=== PATIENT | female | born 1960 | race Caucasian/White ===

== ENCOUNTER 2023-04-29 07:48 | Outpatient (OUT) | payer OTHER, SELFPAY ==
--- NOTE | 2023-04-29 07:52 | MM_ITS ---
Patient: LAYLA CHERY Exam Date: 04/29/2023 : 1960 Gender:F Ordering : SUSANA Kindra Vasquezolvin COLLECTIONS CURATOR Admission #: [id number] Family : Order #: [id number] CLICK HERE TO VIEW EXAM RADIOLOGY REPORT PROCEDURE: MM TOMOSYNTHESIS SCREENING BI COMPARISON: MG MAMM SCREEN 3D MYRTLE CAD, 04/17/2021. MG MAMM SCREEN 3D MYRTLE CAD, 04/23/2022. INDICATIONS: Screening Calculator Name NCI Breast Cancer Risk Assessment Tool 5 Year Breast Cancer Risk 2.40% Lifetime Breast Cancer Risk 11.90% Personal Breast Cancer No Personal Ovarian Cancer No Treatments None Family Cancers Father with non-hodgkins lymphoma cancer at age 58. LOCATION: [facility] BREAST COMPOSITION: Extremely dense, which lowers the sensitivity of mammography. FINDINGS: DIAGNOSTIC CATEGORY 2--BENIGN FINDING. NO CHANGE FROM COMPARISON. Scattered benign-appearing calcifications are present. RIGHT BREAST: No significant suspicious finding. Linear scar marker upper outer quadrant. LEFT BREAST: No significant suspicious finding. Stable micro clip marker lower inner quadrant, mid breast RECOMMENDATIONS: ROUTINE MAMMOGRAM AND CLINICAL EVALUATION IN 12 MONTHS. PLEASE NOTE: A NORMAL MAMMOGRAM DOES NOT EXCLUDE THE POSSIBILITY OF BREAST CANCER. A CLINICALLY SUSPICIOUS PALPABLE LUMP SHOULD BE BIOPSIED. Dictated by: Demetris Avila MD on 04/29/2023 at 10:04 Approved by: Demetris Avila MD on 04/29/2023 at 10:06
[2023-04-29 08:18] LABS: Basophils Absolute Auto 0.1 10^3/uL (0.0-0.1); Basophils Percent Auto 1.3 % (0.2-2.0); Eosinophils Absolute Auto 0.1 10^3/uL (0.0-0.7); Eosinophils Percent Auto 1.3 % (0.9-7.0); Hemoglobin 12.5 g/dL (12.0-16.0); Immature Granulocytes Abs Auto 0.01 10^3/uL (0.00-0.03); Immature Granulocytes Pct Auto 0.2 % (0.0-0.5); Lymphocytes Percent Auto 43.3 % (20.5-60.0); Mean Corpuscular HGB Conc 32.1 g/dL (29.9-35.2); Mean Corpuscular Hemoglobin 30.3 pg (26.7-34.0); Mean Corpuscular Volume 94.7 fL (81.0-99.0); Mean Platelet Volume 9.3 fL (9.5-13.5); Monocytes Absolute Auto 0.4 10^3/uL (0.3-0.8); Monocytes Percent Auto 8.6 % (1.7-12.0); Neutrophils Absolute Auto 2.1 10^3/uL (1.4-6.5); Neutrophils Percent Auto 45.3 % (43.0-75.0); Platelet Count 289 10^3/uL (150-450); Red Blood Count 4.12 10^6/uL (4.20-5.40); Red Cell Distribution Width 13.3 % (11.0-15.0); White Blood Count 4.5 10^3/uL (4.0-11.0)
[2023-04-29 09:41] LABS: Alanine Aminotransferase 24 U/L (14-59); Albumin Globulin Ratio 1.2; Alkaline Phosphatase 42 U/L (46-116); Anion Gap 11.1; Aspartate Amino Transferase 17 U/L (15-37); BUN Creatinine Ratio 28.6; Bilirubin Total 0.3 mg/dL (0.2-1.0); Calcium 9.5 mg/dL (8.5-10.1); Carbon Dioxide 30.6 mmol/L (21.0-32.0); Chloride 105 mmol/L (98-107); Chol HDL Ratio 2.8; Cholesterol 230 mg/dL (<=200); Estimated GFR (African America >60 (>=60); Estimated GFR (Non-African Ame >60 (>=60); Globulin 3.4 g/dL; Glucose 94 mg/dL (74-106); HDL Cholesterol 83 mg/dL (40-60); Potassium 3.7 mmol/L (3.5-5.1); Sodium 143 mmol/L (136-145); Thyroid Stimulating Hormone 5.279 uIU/mL (0.358-3.740); Total Protein 7.4 g/dL (6.4-8.2); Triglycerides 82 mg/dL (<=150); VLDL CHOLESTEROL 16.4 mg/dL
[2023-04-29 10:42] LABS: Free T4 0.94 ng/dL (0.76-1.46)
== END 2023-04-29 07:49 | disposition home or self-care (01) ==
LOC: MAMMO 07:48
PROVIDERS: PCP Nurse Practitioner; Visit Provider Nurse Practitioner
DX: E03.9 Hypothyroidism, unspecified (principal); Z12.31 Encounter for screening mammogram for malignant neoplasm of breast; Z80.7 Family history of other malignant neoplasms of lymphoid, hematopoietic and related tissues; E78.5 Hyperlipidemia, unspecified
CPT/HCPCS: 36415; 77063; 77067; 80053; 80061; 84439; 84443; 85025

== ENCOUNTER 2025-05-05 15:47 | Outpatient (OUT) | payer OTHER, SELFPAY ==
--- OUTSIDE RECORDS SUMMARY | 2025-04-26 20:38 | XMS_ITS | Continuity of Care Document ---
Author Organization [facility] Address [address] [place] [address] Phone Care Team Providers Care Health Plan Manager Name Role Phone Kindra Carey Primary Care Provider [phone] Kindra Carey Attending Provider Care Teams Visit Care Team Team Status: Inactive Member Role Status Dates Kindra Carey NP-Klaus Primary Care Provider Active Start: April 26, 2025 End: April 26, 2025Hortencia Bermeotending ProviderActiveStart: April 26, 2025 End: April 26, 2025 Patient Care Team Team Status: Inactive Member Role Status Dates GLYNN Bermeo Attending Provider Active Start: April 26, 2025 End: April 26, 2025 Chief Complaint and Reason for Visit Chief Complaint Admit Date well woman April 26, 2025 1 0:28am Reason for Visit Admit Date Encounter for screening mamm ogram for malignant neoplasm of breast April 26, 2025 10:28am Hypothyroidism April 26, 2025 1 0:28am Mixed hyperlipidemia April 26, 2025 10:28am Osteopenia of multiple sites April 10:28am Routine gynecological examination Octobe r 2024 10:28am Allergies, Adverse Reactions, Alerts Allergen Type Severity Reaction Last Updated Verified Status No Known Allergies Allergy Unknown April 20, 2025 7:58amYesActive Social History Smoking Status Unknown if ever smoked Observation Status Observation Response Date of Response Legal Sex Female (finding) Sex Assigned At BirthFemaleDecember 1959 Problems Active Problems Medical Problem Onset Date Status Colon cancer screening Unknown Active Encounter for screening mammogram for malignant neoplasm of breast Unknown Active Routine gynecological examination Unknown Active Wellness examination Unknown Active Hypothyroidism Unknown Active Mixed hyperlipidemia Unknown Active Post-menopausal Unknown Active Osteopenia of multiple sites Unknown Act cleve Medications Medication Status Dose Units Route Directions Qty Days St art Date Stop Date End Date Instructions Adherence Levothyroxine 112 mcg tablet Active 112 MCG PO Dang ly April 23, 2025 12:00amUnknown Vital Signs Vital Reading Result Reference Range Collection Date/Time Height 66 [in_i] April 26, 2025 10:24kwYovkqj88.42 [facility] 10:39amBody Vqoctanzsij84.5 [degF]97.6-99.0[facility] 2024 10:39amHeart Rate70 /yqr19-730 April 26, 2025 10:39amRespiratory rate16 /rhn20-15Geelxxd 2024 10:39am Oxygen saturation by Pulse pmhjuzvo99 %95-100[facility] 2024 10:39amBP Inqjolrd365 mm[Hg]100-140[facility] 2024 10:39amBP Uoefencwj09 mm[Hg]60-100 April 26, 2025 10:39amBMI (Body Mass Index)21.1 kg/r4Nhzgfyl 2024 10:39am Advance Directives Advance Directive Response Recorded Date/ Time Advance Directives No March 7:20am Insurance Providers Guarantor Padmini Jasso Address [address] [place] [id number] Info.Home Phone: Payer Policy Id Subscriber's Name Subscriber Id Effectiv e Date Expiration Date [facility] [id number] Padmini Jasso [id number] Encounters Encounter Location(s) Arrival/Admit Date Discharge/Depart Date Provider(s) Departed Physician/Prov ider Office Visit -[facility] [place] April 26, 2025 10:28am April 26, 2025 11:10am GLYNN Bermeo Departed Referred -[facility] April 26, 2025 11:00am April 26, 2025 11:01am GLYNN Bermeo Recent Diagnosis Onset Date Admit Date Encounter for screening mamm ogram for malignant neoplasm of breast Unknown April 26, 2025 10:28am Hypothyroidism Unknown April 26 10:28am Mixed hyperlipidemia Unknown April 10:28am Osteopenia of multiple sites Unknown Apr fredi 2024 10:28am Routine gynecological examination Unknown April 26, 2025 10:28am Assessments Diagnosis Onset Date Resolution Status Admit Date Encounter for screening mammogram for ma lignant neoplasm of breast acuteOctober 2024 10:28amHypothyroidismacuteOctober 2024 10:28am Mixed hyperlipidemiaacuteOctober 2024 10:28amOsteopenia of multiple sites acuteOctober 2024 10:28amRoutine gynecological examinationacuteOctober 2024 10:28am Plan of Treatment Author [facility]ra [facility] 11:22ammonthly BSE proper diet, including calcium rich foods weight bearing exercise as chronic conditions allow fu as per PAP result indicate DEXA scan ordered continue calcium and vit d mammogram ordered recent TSH: 5.30 on 02/22/25, increased thyroid dose to 112 recheck labs, order given current lips: 02/22/25 TC 259, trigs 111, LDL 152, HDL 84 this is improved from last labs a year ago TC 268, LDL 168 mother hx stroke (she was heavy smoker) pt non smoker, no diabetes, no HTN Future Tests Future scheduled test information is unavailable Pending Tests Test Name Ordered Date Scheduled Date IG Pap w/Ct-Ng Age Based (Off-Site) April 11:00am Reference Lab Test Patient AgeOctober 2024 11:00amIG Pap w/Ct-Ng & HPV (Off-Site)April 26, 2025 11:00amThin Prep Pap Interpretation 2October 2024 11:00amThin Prep Pap CommentOct2024 11:00amThin Prep Pap InterpretationOctober 2024 11:00amHuman Papillomavirus High RiskOctober 2024 11:00amHPV Low Volume ReflexOctober 2024 11:00amHPV [facility] 2024 11:00amHuman Papilloma Virus Type 16Oct2024 11:00amHuman Papilloma Virus Type 18/[facility] 2024 11:00amChlamydia trachomatis (DEBBI) (LAB)April 26, 2025 11:00amNeisseria gonorrhoeae (DEBBI) (LAB)April 26, 2025 11:00am Future Visits Future appointment information is unavailable Referrals to Other Providers Referral information is unavailable Future Procedures Procedure Name Ordered Date Scheduled Date IGP,Aptima HPV,CtNg Age Gdln April 26, 2025 10:04pm April 26, 2025 11:00am Free T4 (Free Thyroxine) April 26, 2025 11:1 0am [facility] 2024 11:10am Future Medications Future medication information is unavailable Patient Instructions Patient instructions are unavailable
--- OUTSIDE RECORDS SUMMARY | 2025-05-05 15:52 | XMS_ITS | Clinical Summary ---
Author Organization [facility] Address [address] [place] [address] Care Team Providers Care Music Executive Name Role Phone Mayank Arnold MD Primary Care Provider [phone] Kindra Carey NP Unavailable [phone] Allergies No known active allergies Medications MedicationSigDispense QuantityRefillsLast FilledStart DateEnd DateStatus levothyroxine (Synthroid, Levoxyl) 100 MCG tablet Indications:Hypothyroidism (acquired)Take 1 tablet (100 mcg) by mouth in the morning. Take before meals. 90 tablet /5Active levothyroxine (Synthroid, Levoxyl) 112 MCG tablet Indications:Hypothyroidism (acquired)Take 1 tablet (112 mcg) by mouth Daily 90 tablet 515Active Active Problems ProblemNoted DateDiagnosed DatePost-/11/2025Osteopenia of multiple sites02/24/2024 Overview (02/24/2024): DEXA: 10/15/2022 spine -1.0 Assessment & Plan (02/22/2025 9:17 AM EDT): DEXA 10/15/22: spine -1.0 Order DEXA, can be done in 06/08 Assessment & Plan (02/24/2024 9:31 AM EDT): Not due for dexa until 2024 Mixed rhzihsymtevczq40/12/2024 Assessment & Plan (02/22/2025 6:22 AM EDT): No current statin therapy at this time Assessment & Plan (02/24/2024 9:32 AM EDT): Check labs No statin at this time Encounter for screening mammogram for malignant neoplasm of xpubqw2602/24/2024 Assessment & Plan (02/22/2025 6:22 AM EDT): Due 06/08 Assessment & Plan (02/24/2024 9:32 AM EDT): Due in 05/07 Colon cancer oxsjkjqdf76/12/2024 Assessment & Plan (02/24/2024 9:32 AM EDT): Willing to complete cologuard Wellness brqeopqljjr59/12/2024 Assessment & Plan (02/22/2025 6:22 AM EDT): Reviewed Ht/Wt/BMI Recommend eye exam yearly Recommend dental exams twice a year Balance work/leisure activities Exercises is recommended most days of the week (appropriate as chronic conditions allow) Follow up yearly and prn Assessment & Plan (02/24/2024 9:27 AM EDT): Reviewed Ht/Wt/BMI Recommend eye exam yearly Recommend dental exams twice a year Balance work/leisure activities Exercises is recommended most days of the week (appropriate as chronic conditions allow) Follow up yearly and prn Also discussed getting life screening testing Hypothyroidism (acquired)07/14/2023 Assessment & Plan (02/22/2025 6:21 AM EDT): On levothyroxine Check labs yearly, prn dose changes or changes in sxs Assessment & Plan (02/24/2024 9:31 AM EDT): Continue current meds Check labs Encounters DateTypeDepartmentCare JrtqYhtnlyddmsr76/14/2025Refill [facility] [address] [place] [address] Kindra Carey NP Hypothyroidism (acquired) (Primary Dx)02/24/2025Results Follow-Up [facility] [address] [place] [address] Naila Hollis MA CBC and differential, Comprehensive metabolic panel, Lipid panel, Additional followed-up results: 9:00 AM EDTOffice Visit [facility] [address] [place] [address] Kindra Carey NP Wellness examination (Primary Dx); Osteopenia of multiple sites; Hypothyroidism (acquired) ; Mixed hyperlipidemia ; Encounter for screening mammogram for malignant neoplasm of breast; Post-mhoyjirons11/07/2025Travelfrom Last 3 Months Immunizations ImmunizationAdministration DatesNext DueInfluenza, injectable, MDCK, preservative free, bfneowwffave08/08/2022,05/09/2021Influenza, injectable, quadrivalent, preservative free04/21/2023Zoster, Vkxbizkspkd28/21/2024, 05/19/2023 Social History Tobacco UseTypesPacks/DayYears UsedDateSmoking Tobacco: NeverSmokeless Tobacco: Never Tobacco Cessation:Counseling Given: Not Answered Alcohol UseStandard Drinks/WeekCommentsYes8 (1 standard drink = 0.6 oz pure alcohol)caffine: soda 2 cans rnhveP7823 Health LiteracyAnswerDate RecordedHow often do you need to have someone help you when you read instructions, pamphlets, or other written material from your doctor or pharmacy?Never 02/22/2024Social Connection and Isolation PanelAnswerDate RecordedIn a typical week, how many times do you talk on the phone with family, friends, or neighbors?More than three times a week02/22/2024How often do you get together with friends or relatives?More than three times a week02/22/2024How often do you attend faith or christianity services?1 to 4 times per year02/22/2024o you belong to any clubs or organizations such as faith groups, unions, fraternal or athletic groups, or school groups?No02/22/2024How often do you attend meetings of the clubs or organizations you belong to?Never02/22/2024re you , , , , never , or living with a partner? 02/22/2024UDIT-CAnswerDate RecordedQ1: How often do you have a drink containing alcohol?2-3 times a week02/22/2024Q2: How many drinks containing alcohol do you have on a typical day when you are drinking?1 or Q3: How often do you have six or more drinks on one occasion?Less than thsamlw2902/22/2024Overall Financial Resource Strain (CARDIA)AnswerDate RecordedHow hard is it for you to pay for the very basics like food, housing, medical care, and heating?Somewhat hard02/22/2024HQ-2AnswerDate RecordedPatient Health Questionnaire-2 Score0 02/24/2024[facility] [place] [facility] Occupational Health - Occupational Stress QuestionnaireAnswerDate RecordedDo you feel stress - tense, restless, nervous, or anxious, or unable to sleep at night because yourmind is troubled all the time - these days?Not at all02/22/2024Exercise Vital SignAnswerDate RecordedOn average, how many days per week do you engage in moderate to strenuous exercise (like a brisk walk)?2 days02/22/2024On average, how many minutes do you engage in exercise at this level?30 min02/22/2024Hunger Vital SignAnswerDate Recorded Within the past 12 months, you worried that your food would run out before you got the money to buymore.Sometimes true02/22/2024Within the past 12 months, the food you bought just didn't last and you didn't have money to get more.Sometimes true02/22/2024RAPARE - TransportationAnswerDate RecordedIn the past 12 months, has lack of transportation kept you from medical appointments or from getting medications?No02/22/2024In the past 12 months, has lack of transportation kept you from meetings, work, or from getting things needed for daily living?No 02/22/2024Housing Stability Vital SignAnswerDate RecordedIn the last 12 months, was there a time when you were not able to pay the mortgage or rent on time?No 02/22/2024Number of Times Moved in the Last YearNot on file02/22/2024t any time in the past 12 months, were you homeless or living in a custodial (including now)? No02/22/2024CommentsUnknownSex and Gender InformationValueDate Recorded Sex Assigned at BirthNot on fileLegal QuqLvwqhz04/15/2023 7:13 PM EDTGender IdentityNot on fileSexual OrientationNot on file Last Filed Vital Signs Vital SignReadingTime TakenCommentsBlood Nowyhhit326/68002/22/2025 8:56 AM EDT Asxxm236202/22/2025 8:56 AM WWEKaglsqkcdap23.6 ??C (97.8 ??F)02/22/2025 8:56 AM EDTRespiratory Gesk166402/22/2025 8:56 AM EDTOxygen Blgbajgpzd68%02/22/2025 8:56 AM EDTInhaled Oxygen Concentration--Vzaboq07.4 kg (135 lb 6.4 oz)02/22/2025 8:56 AM PLIEwjmdx969.6 cm (5' 6 )02/24/2024 8:58 AM EDTBody Mass Index21.85002/24/2024 8:58 AM EDT Plan of Treatment Health MaintenanceDue DateLast DoneCommentsCT Yikniwgumkpw1962Colonoscopy 1962FIT1962FOBT1962 4324Gqbqqwlrarakk1962HPV/Pvehwb6407/09/1992 Cervical Cancer Lpholoxsh93/02/2024ap SmearInfluenza Vaccine (#1)/04/2024, 04/21/2023, 04/21/2022, Additional history llmuswBeyrpibmp22/04/202511/10/2023, 04/29/2023, 07/20/2019, Additional history existsColorectal Cancer Xsqzujfaz43/26/2027FIT-DNA4 Procedures Procedure NamePriorityDate/TimeAssociated YullkythbQbytwigfESATRfezior18/11/2025 9:36 AM EDT PGPVujkkmt34/11/2025 9:36 AM EDT Wellness examination URINALYSIS DSPRZMXmebedh97/11/2025 9:36 AM EDT Wellness examination LIPID JRLEYUxzexpu39/11/2025 9:36 AM EDT Wellness examination COMPREHENSIVE METABOLIC ATFNUVncnhnd76/11/2025 9:36 AM EDT Wellness examination CBC (INCLUDES DIFF/PLT)Dhldzgp0802/22/2025 9:36 AM EDT Wellness examination BI MAMMOGRAM SCREENING TOMOSYNTHESIS GEMDBAPJGEnqdwtd75/04/2024 8:45 AM EST Encounter for screening mammogram for malignant neoplasm of breast LAB COLOGUARD?? COLON CANCER BRHSRQKpedtut93/26/2024 7:30 AM EDT Colon cancer screening from Last 3 Months or Most Recently Relevant to Health Maintenance Results * NOTE (02/22/2025 9:36 AM EDT)ComponentValueRef RangeTest MethodAnalysis Time Performed AtPathologist SignatureNOTEQUESTComment: This urine was analyzed for the presence of WBC, RBC, bacteria, casts, and other formed elements. Only those elements seen were reported. Specimen (Source)Anatomical Location / LateralityCollection Method / Volume Collection TimeReceived Time02/22/2025 9:36 AM EDT02/22/2025 9:36 AM EDT Narrative [facility] - 02/23/2025 3:35 AM EDT FASTING:YES FASTING: YES Resulting Agency Comment Performing Organization Information ?Site ID: QPT ?Name: [facility] ?Address: [address] [place] [phone] ?Director: David Jamil MD Authorizing ProviderResult TypeResult StatusLisa Carey NPQUESTFinal Result Performing OrganizationAddressCity/State/ZIP CodePhone Number [facility] * (ABNORMAL) Urinalysis with reflex microscopic (clean catch) (02/22/2025 9:36 AM EDT)ComponentValueRef RangeTest MethodAnalysis TimePerformed AtPathologist SignatureCOLORYELLOWYELLOWQUESTAPPEARANCECLEARCLEARQUESTSPECIFIC GRAVITY1.019 1.001 - 1.702FJUYMEL0.55.0 - 8.0QUESTGLUCOSENEGATIVENEGATIVEQUESTBILIRUBIN NEGATIVENEGATIVEQUESTKETONESTRACE(A)NEGATIVEQUESTOCCULT BLOODNEGATIVENEGATIVE QUESTPROTEINNEGATIVENEGATIVEQUESTNITRITENEGATIVENEGATIVEQUESTLEUKOCYTE ESTERASE1+(A)NEGATIVEQUESTWBC0-5< OR = 5 /HPFQUESTRBCNONE SEEN< OR = 2 /HPF QUESTSQUAMOUS EPITHELIAL CELLSNONE SEEN< OR = 5 /HPFQUESTBACTERIANONE SEENNONE SEEN /HPFQUESTHYALINE CASTNONE SEENNONE SEEN /LPFQUESTSpecimen (Source) Anatomical Location / LateralityCollection Method / VolumeCollection Time Received TimeUrineUrine specimen obtained by clean catch procedure / Unknown 02/22/2025 9:36 AM EDT02/22/2025 9:36 AM EDT Narrative [facility] - 02/23/2025 3:35 AM EDT FASTING:YES FASTING: YES Resulting Agency Comment Performing Organization Information ?Site ID: QPT ?Name: [facility] ?Address: [address] [place] [phone] ?Director: David Jamil MD Authorizing ProviderResult TypeResult StatusKindra Carey NPLAB URINE ORDERABLES Final ResultPerforming OrganizationAddressCity/State/ZIP CodePhone Number [facility] * (ABNORMAL) CBC and differential (02/22/2025 9:36 AM EDT)ComponentValueRef RangeTest MethodAnalysis TimePerformed AtPathologist SignatureWHITE BLOOD CELL COUNT4.03.8 - 10.8 Thousand/uLQUESTRED BLOOD CELL COUNT4.263.80 - 5.10 Million/dBSDWLBIYIQDUGXTI74.911.7 - 15.5 g/gTRRWQTGRYPXUQWWE58.835.0 - 45.0 % UFAICYGN30.880.0 - 100.0 jSVZPKZYQU00.327.0 - 33.0 cwHCDJNTDBL40.6(L)32.0 - 36.0 g/dLQUESTComment: For adults, a slight decrease in the calculated MCHC value (in the range of 30 to 32 g/dL) is most likely not clinically significant; however, it should be interpreted with caution in correlation with other red cell parameters and the patient's clinical condition. RDW12.411.0 - 15.0 %QUESTPLATELET IMMTR304075 - 400 Thousand/uLQUESTMPV9.57.5 - 12.5 fLQUESTABSOLUTE NEUTROPHILS1,8081,500 - 7,800 cells/uLQUESTABSOLUTE LYMPHOCYTES1,111495 - 3,900 cells/uLQUESTABSOLUTE RPCEVGTAD766516 - 950 cells/uL QUESTABSOLUTE OXDSOAUZCOS6505 - 500 cells/uLQUESTABSOLUTE NRYHGXXML139 - 200 cells/wKTBRSTUCHULWMKEYY74.2%QFHNICFQNKOBHVDW70.5%QUESTMONOCYTES8.0%QUEST EOSINOPHILS1.0%QUESTBASOPHILS1.3%QUESTSpecimen (Source)Anatomical Location / LateralityCollection Method / VolumeCollection TimeReceived TimeBloodVenous blood specimen / Rzkcoye6602/22/2025 9:36 AM EDT02/22/2025 9:36 AM EDT Narrative [facility] - 02/23/2025 3:35 AM EDT FASTING:YES FASTING: YES Resulting Agency Comment Performing Organization Information ?Site ID: QPT ?Name: [facility] ?Address: [address] [place] [phone] ?Director: David Jamil MD Authorizing ProviderResult TypeResult StatusLisa Barragankasey ARPIT BLOOD ORDERABLES Final ResultPerforming OrganizationAddressCity/State/ZIP CodePhone Number [facility] * (ABNORMAL) TSH (02/22/2025 9:36 AM EDT)ComponentValueRef RangeTest Method Analysis TimePerformed AtPathologist SignatureTSH5.30(H)0.40 - 4.50 mIU/LQUEST Specimen (Source)Anatomical Location / LateralityCollection Method / Volume Collection TimeReceived TimeBloodVenous blood specimen / Rgpcnoo8102/22/2025 9:36 AM EDT02/22/2025 9:36 AM EDT Narrative [facility] - 02/23/2025 3:35 AM EDT FASTING:YES FASTING: YES Resulting Agency Comment Performing Organization Information ?Site ID: QPT ?Name: [facility] ?Address: [address] [place] [address], [address] [place] [phone] ?Director: David Jamil MD Authorizing ProviderResult TypeResult StatusLisa Aiclancaster rehabilitation hospitalolvin NPLAB BLOOD ORDERABLES Final ResultPerforming OrganizationAddressCity/State/ZIP CodePhone Number [facility] * (ABNORMAL) Lipid panel (02/22/2025 9:36 AM EDT)ComponentValueRef RangeTest MethodAnalysis TimePerformed AtPathologist SignatureCHOLESTEROL, SFRYW364(H) <200 mg/dLQUESTHDL SGAQMONMLTO29> OR = 50 mg/pBTXQMVMNDATDQVEQVCP445<150 mg/dL QUESTLDL FAKTIJTVACD655(H)mg/dL (calc)QUESTComment: Reference range: <100 Desirable range <100 mg/dL for primary prevention; <70 mg/dL for patients with CHD or diabetic patients with > or = 2 CHD risk factors. LDL-C is now calculated using the Jori-Gabriella calculation, which is a validated novel method providing better accuracy than the Friedewald equation in the estimation of LDL-C. Jori SS et al. TRAE. 2013;310(19): 4636-4859 (http://education.[employer].com/faq/DIP150) CHOL/HDLC RATIO3.1<5.0 (calc)QUESTNON HDL QAQVHZXGILA609(H)<130 mg/dL (calc) QUESTComment: For patients with diabetes plus 1 major ASCVD risk factor, treating to a non-HDL-C goal of <100 mg/dL (LDL-C of <70 mg/dL) is considered a therapeutic option. Specimen (Source)Anatomical Location / LateralityCollection Method / Volume Collection TimeReceived TimeBloodVenous blood specimen / Zngzlpz2302/22/2025 9:36 AM EDT02/22/2025 9:36 AM EDT Narrative [facility] - 02/23/2025 3:35 AM EDT FASTING:YES FASTING: YES Resulting Agency Comment Performing Organization Information ?Site ID: QPT ?Name: [facility] ?Address: [address] [place], [place] [address] , [address] [place] [phone] ?Director: David Jamil MD Authorizing ProviderResult TypeResult StatusLisa Barragankasey NPLAB BLOOD ORDERABLES Final ResultPerforming OrganizationAddressCity/State/ZIP CodePhone Number [facility] * (ABNORMAL) Comprehensive metabolic panel (02/22/2025 9:36 AM EDT)Component ValueRef RangeTest MethodAnalysis TimePerformed AtPathologist SignatureGlucose 109(H)65 - 99 mg/dLQUESTComment: ? Fasting reference interval For someone without known diabetes, a glucose value between 100 and 125 mg/dL is consistent with prediabetes and should be confirmed with a follow-up test. QDK441 - 25 mg/dLQUESTCreatinine0.660.50 - 1.05 mg/rDOQCCOWZQB55> OR = 60 mL/min/1.71l2ZNVHFHHC/CREATININE RATIOSEE NOTE:6 - (calc)QUESTComment: ?? Not Reported: BUN and Creatinine are within ?? reference range. ? Vnypcz395109 - 146 mmol/LQUESTPotassium, Bld4.03.5 - 5.3 mmol/UTOULRFmhjerhu743 98 - 110 mmol/LQUESTCarbon Vlziwfk2103 - 32 mmol/DAQLDWExcvhgf20.18.6 - 10.4 mg/dLQUESTPROTEIN, TOTAL7.16.1 - 8.1 g/dLQUESTALBUMIN4.63.6 - 5.1 g/dLQUEST GLOBULIN2.51.9 - 3.7 g/dL (calc)QUESTALBUMIN/GLOBULIN RATIO1.81.0 - 2.5 (calc) QUESTBILIRUBIN, TOTAL0.50.2 - 1.2 mg/dLQUESTALKALINE ONZAUMJUCJB07(L)37 - 153 U/AFHVUFYTV3728 - 35 U/CCKJVMWQA272 - 29 U/LQUESTSpecimen (Source)Anatomical Location / LateralityCollection Method / VolumeCollection TimeReceived TimeBlood Venous blood specimen / Pwmkeyu2902/22/2025 9:36 AM EDT02/22/2025 9:36 AM EDT Narrative [facility] - 02/23/2025 3:35 AM EDT FASTING:YES FASTING: YES Resulting Agency Comment Performing Organization Information ?Site ID: QPT ?Name: [facility] ?Address: [address] [place] [address], [address] [place] [phone] ?Director: David Jamil MD Authorizing ProviderResult TypeResult StatusLisa Aurelio NPLAB BLOOD ORDERABLES Final ResultPerforming OrganizationAddressCity/State/ZIP CodePhone Number [facility] * Bilateral screening mammogram with tomosynthesis (05/18/2024 8:45 AM EST) Anatomical RegionLateralityModalityBreastBilateralMammographySpecimen (Source) Anatomical Location / LateralityCollection Method / VolumeCollection Time Received Time05/20/2024 10:06 AM EST Impressions 05/20/2024 10:14 AM EST Impression: No specific evidence of malignancy seen in either breast. BIRADS 2 - Benign DENSITY: The breasts are extremely dense, which lowers the sensitivity of mammography FOLLOW-UP: Routine Screening Mamm ELECTRONICALLY SIGNED BY: Nikita Agosto M.D. Narrative 05/20/2024 10:14 AM EST Examination: BI MAMMOGRAM SCREENING TOMOSYNTHESIS BILATERAL Clinical History: breast cancer screening Technique: Screening digital mammography study of both breasts was performed with 2-D and 3-D tomosynthesis imaging. Study was compared to the prior exam dated 04/29/2023. Findings: There is no evidence of interval dominant spiculated mass, grouped microcalcifications, or skin thickening which would be suggestive of malignancy. ?? A few benign-appearing calcifications are seen bilaterally. Postbiopsy clip is seen on the left similar to the prior study. Mild architectural distortion on the right compatible with postprocedural fibrosis, similar to the prior study. Procedure Note Nikita Agosto MD - 05/20/2024 Examination: BI MAMMOGRAM SCREENING TOMOSYNTHESIS BILATERAL Clinical History: breast cancer screening Technique: Screening digital mammography study of both breasts wasperformed with 2-D and 3-D tomosynthesis imaging. Study was compared tothe prior exam dated 04/29/2023. Findings: There is no evidence of interval dominant spiculated mass,grouped microcalcifications, or skin thickening which would be suggestiveof malignancy. A few benign-appearing calcifications are seen bilaterally. Postbiopsyclip is seen on the left similar to the prior study. Mild architecturaldistortion on the right compatible with postprocedural fibrosis, similarto the prior study. IMPRESSION: Impression: No specific evidence of malignancy seen in either breast. BIRADS 2 - Benign DENSITY: The breasts are extremely dense, which lowers the sensitivity of mammography FOLLOW-UP: Routine Screening Mamm ELECTRONICALLY SIGNED BY: Nikita Agosto M.D. Authorizing ProviderResult TypeResult StatusLisa Aicpunxsutawney area hospital NPIMG BI PROCEDURES Final Result * Cologuard?? colon cancer screening (03/09/2024 7:30 AM EDT)ComponentValueRef RangeTest MethodAnalysis TimePerformed AtPathologist SignatureNONINV COLON CA DNA+OCC BLD SCRN STL-ILWVtgtfpcwWfbgfdkm43/29/2024 6:56 PM EDTEXThe O'Gara Group (CLIA #:[id number])Comment: NEGATIVE TEST RESULT. A negative Cologuard result indicates a low likelihood that a colorectal cancer (CRC) or advanced adenoma (adenomatous polyps with more advanced pre-malignant features) ??is present. The chance that a person with a negative Cologuard test has a colorectal cancer is less than 1in 1500 (negative predictive value >99.9%) or has an advanced adenoma is less than 5.3% (negative predictive value 94.7%). These data are based on a prospective cross-sectional study of 10,000individuals at average risk for colorectal cancer who were screened with both Cologuard and colonoscopy. (Zeb Corcoran al, N Engl J Med 2014;370(14):6006-0135) The normal value (reference range) for this assay is negative. COLOGUARD RE-SCREENING RECOMMENDATION: Periodic colorectal cancer screening is an important part ofpreventive healthcare for asymptomatic individuals at average risk for colorectal cancer. ??Following a negative Cologuard result, the [place] [employer] and U.S. Multi-Society Task Force screening guidelines recommend a Cologuard re-screening interval of 3 years. References: [place] [employer] Guideline for Colorectal Cancer Screening: https://www.cancer.or g/cancer/duxmf-vjgzlo-pteojo/eaffagflg-evsrattxc-lgmdywc/acs-recommendations.htm vick; Regulo SAMPSON, Kamini BYRNES, Vianey KEN, Colorectal Cancer Screening: Recommendations for Physicians and Patients from the U.S. Multi-Society Task Force on Colorectal Cancer Screening , Am J Gastroenterology 2017; 112:9083-7545. TEST DESCRIPTION: Composite algorithmic analysis of stool DNA-biomarkers with hemoglobin immunoassay. ?? Quantitative values of individual biomarkers are not reportable and are not associated with individual biomarker result reference ranges. Cologuard is intended for colorectal cancer screening ofadults of either sex, 45 years or older, who are at average-risk for colorectal cancer (CRC). Cologuard has been approved for use by the U.S. FDA. The performance of Cologuard was established in a cross sectional study of average-risk adults aged 50-84. Cologuard performance in patients ages 45 to 49 years was estimated by sub-group analysis of near-age groups. Colonoscopies performed for a positive result may find as the most clinically significant lesion: colorectal cancer [4.0%], advanced adenoma (including sessile serrated polyps greater than or equal to 1cm diameter) [20%] or non- advanced adenoma [31%]; or no colorectal neoplasia [45%]. These estimates are derived from a prospective cross-sectional screening study of 10,000 individuals at average risk for colorectal cancer who were screened with both Cologuard and colonoscopy. (Zeb Corcoran al, N Engl J Med 2014;370(14):3143-4338.) Cologuard may produce a false negative or false positive result (no colorectal cancer or precancerous polyp present at colonoscopy follow up). A negative Cologuard test result does not guarantee the absence of CRC or advanced adenoma (pre-cancer). The current Cologuard screening interval is every 3 years. ([place] [employer] and U.S. Multi-Society Task Force). Cologuard performance data in a 10,000 patient pivotal study using colonoscopy as the reference method can be accessed at the following location: www.[employer].com/results. Additional description of the Cologuard test process, warnings and precautions can be found at www.cologSousaCamprd.com. Specimen (Source)Anatomical Location / LateralityCollection Method / Volume Collection TimeReceived TimeStool specimen (specimen)03/09/2024 7:30 AM EDT 03/10/2024 11:48 AM EDT Narrative Authorizing ProviderResult TypeResult StatusLisa Aurelio [facility] ORDERABLESFinal ResultPerforming OrganizationAddressCity/State/ZIP CodePhone Number [facility] (CLIA #:[id number]) [address] [place] [address], from Last 3 Months or Most Recently Relevant to Health Maintenance Insurance Care Teams Team MemberRelationshipSpecialtyStart DateEnd Date Mayank Arnold MD PCP - GeneralFamily Medicine02/24/24 Kindra Carey NP Nurse PractitionerFamily Medicine02/24/24
--- OUTSIDE RECORDS SUMMARY | 2025-05-05 15:52 | XMS_ITS | Clinical Summary ---
Author Organization [employer] tem Address [id number] [address] 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 In a.m. with water on empty stomach, nothing else by mouth and remain upright for 30minActive Social History Tobacco UseTypesPacks/DayYears UsedDateSmoking Tobacco: NeverSmokeless Tobacco: NeverAlcohol UseStandard Drinks/WeekCommentsYes0 (1 standard drink = 0.6 oz pure alcohol)occasionalChildcareAnswerDate RcjlqshcUozdyfxfvMzucbql60/12/2019 EmploymentAnswerDate DlqzybcsFhvseitssuIhmwtjz74/12/2019Purpose - LifeAnswerDate RecordedPurpose and direction in nebbOjcpezv16/11/2021CommentsNoSex and Gender InformationValueDate RecordedSex Assigned at BirthNot on fileLegal Sex Psmlyl8902/17/2015 11:46 AM EDTGender IdentityNot on fileSexual OrientationNot on file Last Filed Vital Signs Vital SignReadingTime TakenCommentsBlood Bjlsrcry711/7210 11:33 AM EDT Hdpvh4675 11:39 AM LDNAvgrlgxqjzp15.6 ??C (97.9 ??F)05/02/2020 10:40 AM EDTRespiratory Baok9470 11:39 AM EDTOxygen Epmerzewoz767%05/02/2020 11:39 AM EDTInhaled Oxygen Concentration--Iuqycx97 kg (130 lb)05/02/2020 7:14 AM KOOMtbcsq182.6 cm (5' 6 )05/02/2020 7:14 AM EDTBody Mass Index20.9805/02/2020 7:14 AM EDT Plan of Treatment Health MaintenanceDue DateLast DoneCommentsDepression Ujdoioqwc94/26/1974Tobacco Gfmanqolk24/26/1974Adult BMI Xgghnzddx44/26/1980DTaP,Tdap and Td Vaccines (1 - Tdap)1981Zoster (Shingles) Vaccine (2 of 3)/11/2022Influenza Iubllor87/04/2024 Medical Devices Not on file Insurance Care Teams Team MemberRelationshipSpecialtyStart DateEnd Date Mayank Arnold MD PCP - GeneralFamily Segvjolj71/2/20
[2025-05-05 16:56] LABS: Thyroid Stimulating Hormone 1.624 uIU/mL (0.358-3.740)
== END 2025-05-05 15:48 | disposition home or self-care (01) ==
PROVIDERS: PCP Nurse Practitioner; Visit Provider Nurse Practitioner
DX: E03.9 Hypothyroidism, unspecified (principal)
CPT/HCPCS: 36415; 84439; 84443

== ENCOUNTER 2025-05-31 07:17 | Outpatient (OUT) | payer OTHER, SELFPAY ==
--- NOTE | 2025-05-31 07:20 | MM_ITS ---
Patient Name: LAYLA CHERY MR#: [id number] : 1960 Exam Date: 05/31/2025 Ordering Doctor: SUSANA DIEGO CNP RADIOLOGY REPORT PROCEDURE: MM TOMOSYNTHESIS SCREENING BI COMPARISON: MM TOMOSYNTHESIS SCREENING BI, 04/29/2023. MG MAMM SCREEN 3D MYRTLE CAD, 04/23/2022. MG MAMM SCREEN 3D MYRTLE CAD, 04/17/2021. MG MAMM MYRTLE SCRN W CAD DIG, 04/20/2013. INDICATIONS: Screening Calculator Name NCI Breast Cancer Risk Assessment Tool 5 Year Breast Cancer Risk 2.60% Lifetime Breast Cancer Risk 11.30% Personal Breast Cancer No Personal Ovarian Cancer No Treatments None Family Cancers Father with non-hodgkins lymphoma cancer at age 58. LOCATION: [facility] BREAST COMPOSITION: The breasts are extremely dense, which lowers the sensitivity of mammography. FINDINGS: RIGHT BREAST: No significant suspicious finding. Postop changes are noted within the lateral aspect of the right breast. Benign-appearing calcifications are present. LEFT BREAST: No significant suspicious finding. Benign-appearing calcifications are redemonstrated along with a biopsy clip. DIAGNOSTIC CATEGORY 2--BENIGN FINDING. NO CHANGE FROM COMPARISON. RECOMMENDATIONS: ROUTINE MAMMOGRAM AND CLINICAL EVALUATION IN 12 MONTHS. Dictated by: Hua Lamb MD on 05/31/2025 at 12:05 Approved by: Hua Lamb MD on 05/31/2025 at 13:24
--- OUTSIDE RECORDS SUMMARY | 2025-05-31 07:20 | XMS_ITS | Clinical Summary ---
Author Organization [employer] tem Address [id number] [address] 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 Phone Mayank Arnold MD Primary Care Provider [phone] Allergies No known active allergies Medications MedicationSigDispense [...] standard drink = 0.6 oz pure alcohol)occasionalChildcareAnswerDate MtdeakkkNuhasnhoyStobpzd42/12/2019 EmploymentAnswerDate HlvfaykrIswphkdeyzLsumrur67/12/2019Purpose - LifeAnswerDate RecordedPurpose and direction in tpakImobbfa51/11/2021CommentsNoSex and Gender InformationValueDate RecordedSex Assigned at BirthNot on fileLegal Sex Cvggnr4202/17/2015 11:46 AM EDTGender IdentityNot on fileSexual OrientationNot on file Last Filed Vital Signs Vital SignReadingTime TakenCommentsBlood Avsewegf635/7210 11:33 AM EDT Bsctl5469 11:39 AM UDECsicvequqtn96.6 ??C (97.9 ??F)05/02/2020 10:40 AM EDTRespiratory Caqj9679 11:39 AM EDTOxygen Isoewkdlez486%05/02/2020 11:39 AM EDTInhaled Oxygen Concentration--Dfwvxf98 kg (130 lb)05/02/2020 7:14 AM EGIYcblzp554.6 cm (5' 6 )05/02/2020 7:14 AM EDTBody Mass Index20.9805/02/2020 7:14 AM EDT Plan of Treatment Health MaintenanceDue DateLast DoneCommentsDepression Lnbyilblk51/26/1974Tobacco Bhtytjmoo51/26/1974Adult BMI Mdckyfrkv68/26/1980DTaP,Tdap and Td Vaccines (1 - Tdap)1981Zoster (Shingles) Vaccine (1 of 2)/11/2022Influenza Ulqqvev33/4RSV ( or age 60+ yrs) (1 - 1-dose 75+ series) 2037 [employer] Not on file Insurance Care Teams Team MemberRelationshipSpecialtyStart DateEnd Date Mayank Arnold MD PCP - GeneralFamily Nzoictup64/2/20
--- OUTSIDE RECORDS SUMMARY | 2025-05-31 07:20 | XMS_ITS | Clinical Summary ---
Author Organization [facility] Address [address] [place] [address] Care Team Providers Care Ward Maid Name Role Phone Mayank Arnold MD Primary Care Provider [phone] Kindra Carey NP Unavailable [phone] Allergies No known active allergies Medications MedicationSigDispense QuantityRefillsLast FilledStart DateEnd DateStatus levothyroxine (Synthroid, Levoxyl) 100 MCG tablet Indications:Hypothyroidism (acquired)Take 1 tablet (100 mcg) by mouth in the morning. Take before meals. 90 tablet 5Active levothyroxine (Synthroid, Levoxyl) 112 MCG tablet Indications:Hypothyroidism (acquired)Take 1 tablet (112 mcg) by mouth Daily 90 tablet 5Active Active Problems ProblemNoted DateDiagnosed DatePost-hejcaanuei03/11/2025Osteopenia of multiple sites02/24/2024 Overview (02/24/2024): DEXA: 10/15/2022 spine -1.0 Assessment & Plan (02/22/2025 9:17 AM EDT): DEXA 10/15/22: spine -1.0 Order DEXA, can be done in 06/08 Assessment & Plan (02/24/2024 9:31 AM EDT): Not due for dexa until 2024 Mixed flwmoafmovfzwk60/12/2024 Assessment & Plan (02/22/2025 6:22 AM EDT): No current statin therapy at this time Assessment & Plan (02/24/2024 9:32 AM EDT): Check labs No statin at this time Encounter for screening mammogram for malignant neoplasm of jlnagh2602/24/2024 Assessment & Plan (02/22/2025 6:22 AM EDT): Due 06/08 Assessment & Plan (02/24/2024 9:32 AM EDT): Due in 05/07 Colon cancer qlqpzjzov46/12/2024 Assessment & Plan (02/24/2024 9:32 AM EDT): Willing to complete cologuard Wellness rddwxyhgnzn18/12/2024 Assessment & Plan (02/22/2025 6:22 AM EDT): [...] AM EDT): Continue current meds Check labs Immunizations ImmunizationAdministration DatesNext DueInfluenza, injectable, MDCK, preservative free, qhjafjiemwpo49/08/2022,05/09/2021Influenza, injectable, quadrivalent, preservative free04/21/2023Zoster, Lrxszsjbrxu14/21/2024, 05/19/2023 Social History Tobacco UseTypesPacks/DayYears UsedDateSmoking Tobacco: NeverSmokeless Tobacco: Never Tobacco Cessation:Counseling Given: Not Answered Alcohol UseStandard Drinks/WeekCommentsYes8 (1 standard drink = 0.6 oz pure alcohol)caffine: soda 2 cans icamkE6314 Health LiteracyAnswerDate RecordedHow often do you need [...] times a week02/22/2024How often do you attend adventist or oriental orthodox services?1 to 4 times per year02/22/2024o you belong to any clubs or organizations such as adventist groups, unions, fraternal or athletic groups, or [...] or more drinks on one occasion?Less than wxjhyiy8202/22/2024Overall Financial Resource Strain (CARDIA)AnswerDate RecordedHow hard is it for you to pay for the very basics like food, housing, medical care, and heating?Somewhat hard02/22/2024HQ-2AnswerDate RecordedPatient Health Questionnaire-2 Score0 02/24/2024[facility] [place] [facility] - Occupational Stress QuestionnaireAnswerDate [...] were you homeless or living in a snf (including now)? No02/22/2024CommentsUnknownSex and Gender InformationValueDate Recorded Sex Assigned at BirthNot on fileLegal PbfRikijt59/15/2023 7:13 PM EDTGender IdentityNot on fileSexual OrientationNot on file Last Filed Vital Signs Vital SignReadingTime TakenCommentsBlood Atzuthau139/68002/22/2025 8:56 AM EDT Dqtxw704602/22/2025 8:56 AM QGVWbszvyastzt16.6 ??C (97.8 ??F)02/22/2025 8:56 AM EDTRespiratory Dsou896402/22/2025 8:56 AM EDTOxygen Chxvvcrtjl50%02/22/2025 8:56 AM EDTInhaled Oxygen Concentration--Hlsqch17.4 kg (135 lb 6.4 oz)02/22/2025 8:56 AM JJCIccdbb732.6 cm (5' 6 )02/24/2024 8:58 AM EDTBody Mass Index21.85002/24/2024 8:58 AM EDT Plan of Treatment Health MaintenanceDue DateLast DoneCommentsCT Muwjiijzjhet1960Colonoscopy 1960FIT1960FOBT1960 8755Efhbtqlfdpdgr1962HPV/Apwbmw1107/09/1992 Cervical Cancer Uwbkuxzlv18/02/2024ap SmearOVID-19 Vaccine ( season), 05/27/2021, 10/22/2020, Additional history existsInfluenza Vaccine (#1)/04/2024, 04/21/2023, 04/21/2022, Additional history bdytdgFsamfzqxm40, 04/29/2023, 07/20/2019, Additional history existsColorectal Cancer Esjznpfwg12/26/2027 FIT-DNAneumococcal Vaccine: Pediatrics (0 to 5 Years) and At-Risk Patients (6 to 64 Years)Aged OutNo longer eligible based on patient's age to complete this topic Procedures Procedure NamePriorityDate/TimeAssociated DiagnosisCommentsBI MAMMOGRAM SCREENING TOMOSYNTHESIS OXYHUUKGNFjwszaz56/04/2024 8:45 AM EST Encounter for screening mammogram for malignant neoplasm of breast LAB COLOGUARD?? COLON CANCER JVJLWIDlcepei18/26/2024 7:30 AM EDT Colon cancer screening from Last 3 Months or Most Recently Relevant to Health Maintenance Results * Bilateral screening mammogram with tomosynthesis (05/18/2024 [...] Nikita Agosto M.D. Authorizing ProviderResult TypeResult StatusLisa Aichholz NPIMG BI PROCEDURES Final Result * Cologuard?? colon cancer screening (03/09/2024 7:30 AM EDT)ComponentValueRef RangeTest MethodAnalysis TimePerformed AtPathologist SignatureNONINV COLON CA DNA+OCC BLD SCRN STL-JEEDpitqiddZskpzsyk51/29/2024 6:56 PM EDTEXKoozoo (CLIA #:[id number])Comment: NEGATIVE TEST RESULT. A negative Cologuard result [...] screened with both Cologuard and colonoscopy. (Zeb Lewis et al, N Engl J Med 2014;370(14):7775-8454) The normal value (reference range) for this assay is negative. COLOGUARD RE-SCREENING RECOMMENDATION: Periodic colorectal cancer screening is an important part ofpreventive healthcare for asymptomatic individuals at average risk for colorectal cancer. ??Following a negative Cologuard result, the [place] [employer] and U.S. Multi-Society Task Force screening guidelines recommend a Cologuard re-screening interval of 3 years. References: [place] [employer] Guideline for Colorectal Cancer Screening: https://www.cancer.or g/cancer/decth-abwdfp-zjdwxa/aepmpjoxk-uvhrcpora-kxrlrat/acs-recommendations.htm vick; Regulo SAMPSON, Kamini BYRNES, Vianey JohnsonK, Colorectal Cancer Screening: Recommendations for Physicians and Patients from the U.S. Multi-Society Task Force on Colorectal Cancer Screening , Am J Gastroenterology 2017; 112:7131-2294. TEST DESCRIPTION: Composite algorithmic analysis of stool [...] screened with both Cologuard and colonoscopy. (Zeb Jacques. et al, N Engl J Med 2014;370(14):1020-8990.) Cologuard may produce a false negative or false positive result (no colorectal cancer or precancerous polyp present at colonoscopy follow up). A negative Cologuard test result does not guarantee the absence of CRC or advanced adenoma (pre-cancer). The current Cologuard screening interval is every 3 years. ([place] [employer] and U.S. Multi-Society Task Force). Cologuard performance data in a 10,000 patient pivotal study using colonoscopy as the reference method can be accessed at the following location: www.[employer]/results. Additional description of the Cologuard test process, warnings and precautions can be found at www.[employer] Mediaoguard.com. Specimen (Source)Anatomical Location / LateralityCollection Method / Volume Collection TimeReceived TimeStool specimen (specimen)03/09/2024 7:30 AM EDT 03/10/2024 11:48 AM EDT Narrative Authorizing ProviderResult TypeResult StatusLisa Aickasey [facility] ORDERABLESFinal ResultPerforming OrganizationAddressCity/State/ZIP CodePhone Number [employer] (CLIA #:[id number]) [place] [address], from Last 3 Months or Most Recently Relevant to Health Maintenance Insurance Care Teams Team MemberRelationshipSpecialtyStart DateEnd Date Mayank Arnold MD PCP - GeneralFamily Medicine02/24/24 Kindra Carey NP Nurse PractitionerFamily Medicine02/24/24
== END 2025-05-31 07:18 | disposition home or self-care (01) ==
LOC: MAMMO 07:17
PROVIDERS: PCP Nurse Practitioner; Visit Provider Nurse Practitioner
DX: M85.89 Other specified disorders of bone density and structure, multiple sites (principal); Z78.0 Asymptomatic menopausal state; Z12.31 Encounter for screening mammogram for malignant neoplasm of breast; Z80.7 Family history of other malignant neoplasms of lymphoid, hematopoietic and related tissues; M85.88 Other specified disorders of bone density and structure, other site
CPT/HCPCS: 77063; 77067; 77080